=== PATIENT | female | born 1965 | race Caucasian/White ===

== ENCOUNTER 2017-12-24 00:32 | Emergency (ER) | payer SELFPAY, OTHER ==
[2017-12-24] MEDS: HYDROCODONE/APAP (5/325) TAB PO (03:15)
[2017-12-24] MEDS: ACYCLOVIR 800 MG TAB PO (03:52)
== END 2017-12-24 04:01 | disposition home or self-care (01) ==
LOC: FTE 00:32
DX: B02.9 Zoster without complications (principal)
CPT/HCPCS: 99284